=== PATIENT | female | born 1955 | race Caucasian/White ===

== ENCOUNTER 2020-08-30 20:20 | Emergency (ER) | payer BC ==
[2020-08-30] MEDS ORDERED: DALBAVANCIN HCL 1,500 MG in DEXTROSE 5%-WATER - 500 ML IVPB ONE (20:52)
[2020-08-30 21:15] VITALS: BP 138/75; PULSE 73; TEMP 98.7; BMI 32.7
[2020-08-30] MEDS ORDERED: DALBAVANCIN HCL 500 MG VIAL (RESTRICTED TO ID ONLY) IVPB ONE (21:33)
[2020-08-30 22:09] LABS: BASO % 0.8 % (0-2.0); EOS % 3.5 % (0-4.5); HEMATOCRIT 36.2 % (32.4-45.2); HEMOGLOBIN 12.4 GM/dl (10.7-15.3); LYMPH % 30.2 % (8-40); MCH 30.8 pg (25.7-33.7); MCHC 34.3 g/dl (32.0-36.0); MEAN CELL VOLUME 89.7 fl (80-96); MEAN PLT VOLUME 8.3 fl (7.5-11.1); MONO % 13.6 % (3.8-10.2); NEUT % 51.9 % (42.8-82.8); PLATELET COUNT 245 10^3/uL (134-434); RBC 4.03 M/mm3 (3.60-5.2); RDW 12.9 % (11.6-15.6); WHITE BLOOD COUNT 7.4 K/mm3 (4.0-10.8)
[2020-08-30 22:13] LABS: ALBUMIN 3.9 g/dl (3.4-5.0); BILIRUBIN,TOTAL 0.5 mg/dl (0.2-1); CALCIUM 9.1 mg/dl (8.5-10); CREATININE 0.9 mg/dl (0.55-1.3); TOT PROT 7.5 g/dl (6.4-8.2)
== END 2020-08-30 22:36 | disposition home or self-care (01) ==
LOC: FER 20:20
DX: S60.932A Unspecified superficial injury of left thumb, initial encounter (principal); L08.9 Local infection of the skin and subcutaneous tissue, unspecified
CPT/HCPCS: 36415; 80053; 85025; 87040; 87076; 99284-25; J0875

== ENCOUNTER 2020-09-05 14:15 | Emergency (ER) | payer BC ==
[2020-09-05 14:24] VITALS: BP 152/79; PULSE 73; TEMP 98.9; BMI 33.2
== END 2020-09-05 15:08 | disposition home or self-care (01) ==
LOC: FER 14:15
DX: Z48.00 Encounter for change or removal of nonsurgical wound dressing (principal)
CPT/HCPCS: 87040; 99281-25